=== PATIENT | female | born 1980 | race Caucasian/White ===

== ENCOUNTER → 2018-01-02 | Day surgery (SDC) | payer OTHER ==
[~2018-01-02] VITALS: Ht 170.1 cm; Wt 86.2 kg
[~2018-01-02] MED LIST: AUGMENTIN 875 M1 TAB PO; AUVI-Q0.3 MG/0.3 MR; CLARITIN10 MG PO; DELTASONE10 MG PO; HYDROCODONE BIT1 T11 PO; NKHM PO; NORCO 5-325 TA1 EACH PO; PEPCID20 MG PO; PROAIR HFA0.09 MG/AC IH; ZITHROMAX Z PA250 MG PO
--- NOTE | ~2018-01-02 | PROC NOTE ---
[place], [place] PROCEDURE NOTE NAME: [id number] UNIT #: [id number] ROOM: DOCTOR: BROCK GRACE MD BIRTHDATE: [birth year] DOS: 01/02/2018 PREOPERATIVE DIAGNOSIS: Posterior neck cyst. POSTOPERATIVE DIAGNOSIS: Posterior neck cyst. PROCEDURE: Excision of posterior neck cyst. SURGEON: Brock Grace M.D. WATCH TECHNICIAN: None. ANESTHESIA: Local (8 mL of 1% plain lidocaine). INDICATIONS: This is a 37-year-old lady with a history of a posterior neck cyst, who is here for the above-mentioned procedure. The procedure and its complications were explained to the patient in detail preoperatively. Complications that were discussed included but were not limited to bleeding, prolonged pain and infection. She agreed to proceed. DESCRIPTION OF PROCEDURE: After identifying the patient, the patient was brought to the operating suite and laid in the right lateral position. After timeout procedure was called, the parts were painted and draped in the usual sterile fashion and an incision was marked. Local anesthesia was infiltrated in the line of the incision and an incision was made with the help of a knife. It was deepened in layers. The cyst was excised in its entirety after it was dissected from the surrounding structures with the help of electrocautery. It was sent for histopathological diagnosis. Hemostasis was achieved with the help of electrocautery. Thereafter, the subcutaneous tissue was approximated with the help of 3-0 Vicryl and the edges of the skin were approximated with the help of 4-0 Vicryl in a subcuticular fashion. Dressings were placed. The patient tolerated the procedure well and was brought back to the recovery room in stable fashion. There were no complications. Dr. Brock Grace, the attending surgeon, was present throughout the operating case. Brock Grace MD CM:PROCNOTE:PROCEDURE NOTE [id number] BROCK GRACE MD
[2018-01-02 11:20] VITALS: BP 121/66
[2018-01-02 11:35] VITALS: BP 122/70
[2018-01-02 11:45] VITALS: BP 122/68
== END | disposition home or self-care (01) ==
LOC: SDC 12-30 08:45
DX: L72.0 Epidermal cyst (principal); R22.1 Localized swelling, mass and lump, neck; F17.210 Nicotine dependence, cigarettes, uncomplicated; Z83.3 Family history of diabetes mellitus; Z98.890 Other specified postprocedural states

== ENCOUNTER → 2021-04-30 | Outpatient (CLI) | payer OTHER | END | disposition home or self-care (01) | LOC: RAD 12:56 | PROVIDERS: ATTEND Family Medicine | DX: Z02.1 Encounter for pre-employment examination (principal) ==

== ENCOUNTER → 2022-06-12 | Outpatient (CLI) | payer OTHER ==
[2022-06-12 10:54] LABS: HEMATOCRIT 42.8 % (37.0-47.0); MEAN CELL VOLUME 88.4 fl (81.0-99.0); MEAN CORPUSCULAR HGB 29.1 pg (27.0-31.0); MEAN CORPUSCULAR HGB CONC 32.9 g/dl (33.0-37.0); MEAN PLATELET VOLUME 10.6 fl (9.6-12.3); RED BLOOD COUNT 4.84 10*6/uL (4.10-5.10); RED CELL DISTRI WIDTH 13.3 % (0-14.5); WHITE BLOOD COUNT 7.5 10*3/uL (4.8-10.8)
[2022-06-12 11:22] LABS: ALKALINE PHOSPHATASE 58 U/L (46-116); BUN 11 mg/dl (9-23); CHLORIDE 108 mmol/L (98-107); CHOLESTEROL 162 mg/dL (<200); LDL CHOLESTEROL 87 mg/dL (9-159); SGPT/ALT 22 U/L (10-49); SODIUM 139 mmol/L (136-145); TOTAL PROTEIN 6.9 gm/dL (6.0-8.0); TRIGLYCERIDES 173 mg/dl (<150)
[2022-06-12 11:29] LABS: THYROID STIM HORMONE (HS) 1.719 uIU/ml (0.550-4.780)
[2022-06-12 11:30] LABS: FREE T4 1.09 ng/dl (0.89-1.76)
== END | disposition home or self-care (01) ==
LOC: LAB 10:26
PROVIDERS: ATTEND Family Medicine
DX: Z00.00 Encounter for general adult medical examination without abnormal findings (principal); R53.83 Other fatigue; R63.5 Abnormal weight gain; E78.00 Pure hypercholesterolemia, unspecified

== ENCOUNTER → 2022-09-27 | Outpatient (CLI) | payer OTHER | END | disposition home or self-care (01) | LOC: RAD 12:44 → LAB 12:44 | PROVIDERS: ATTEND Family Medicine | DX: R07.9 Chest pain, unspecified (principal); R05.9 Cough, unspecified; Z72.0 Tobacco use ==

== ENCOUNTER → 2025-03-25 | Outpatient (CLI) | payer BC ==
[2025-03-25 10:21] LABS: MEAN CELL VOLUME 85.5 fl (81.0-99.0); MEAN CORPUSCULAR HGB 27.0 pg (27.0-31.0); MEAN PLATELET VOLUME 10.5 fl (9.6-12.3); NUCLEATED RED BLOOD CELL 0.0 % (0.0-0.0); NUCLEATED RED BLOOD CELL 0.0 10*3/uL (0.0-0.0); PLATELET COUNT AUTOMATED 240.0 10*3/uL (130-400); RED CELL DISTRI WIDTH 14.6 % (0-14.5)
[2025-03-25 10:53] LABS: BUN 12 mg/dl (9-23); SGPT/ALT 48 U/L (5-49)
== END | disposition home or self-care (01) ==
LOC: LAB 09:56
PROVIDERS: ATTEND Family Medicine
DX: E74.9 Disorder of carbohydrate metabolism, unspecified (principal); R53.83 Other fatigue; Z79.899 Other long term (current) drug therapy